=== PATIENT | male | born 1975 | race Two or more races ===

== ENCOUNTER 2020-04-26 13:55 | Emergency (ER) | payer SELFPAY ==
[2020-04-26 14:25] VITALS: BP 112/75; PULSE 71; RESP 14; TEMP 36.4; O2SAT 98; BMI 24.3
--- NOTE | 2020-04-26 14:28 | XR_ITS ---
PROCEDURE: XR KNEE RT 3V CLINICAL INDICATION: kicked by a horse COMPARISON: No exams were available for comparison FINDINGS: No fracture or dislocation. No lytic or blastic change. There is normal mineralization. The joint spaces are well-preserved. No significant degenerative/arthritic changes. There is mild soft tissue swelling medially just above the medial femoral condyle. There is no definite joint effusion. Other findings:None. IMPRESSION: Probable contusion medial knee, no other significant abnormality noted Dictated by: Dr. Ish Angulo MD 04/26/2020 14:51 Dr. Ish Angulo MD in [place] 04/26/2020 14:51
--- NOTE | 2020-04-26 14:54 | HMH.EDUTC ---
[facility] [place] Clinical Impression: Contusion of right knee Qualifiers: Encounter type: initial encounter Qualified Code(s): S80.01XA - Contusion of right knee, initial encounter Disposition: Home, Self-Care Condition on Discharge: Good Instructions: DI for Contusion, DI for Knee Pain Additional Instructions: Rest the extremity, apply ice for 15 minutes as tolerated three or four times per day, Wear the cuco wrap for compression, Elevate the extremity as tolerated while you are resting. Take ibuprofen for pain. I sent in a prescription to your pharmacy. Follow up with Dr. Otero (orthopedics) if you continue to have symptoms. I put in a referral but you need to call his office and schedule an appointment. Follow up with your regular doctor. GO TO THE ER FOR ANY WORSENING SYMPTOMS Prescriptions: Ibuprofen [Ibuprofen 600mg Tablet] 600 mg PO Q6HP PRN #30 tab PRN Reason: Mild Pain Transmission Status: Received by [facility] Referrals: Mariusz Pérez MD [Primary Care Provider] - Alvarez Otero MD [Staff Physician] - Time of Disposition: 15:17 Medical Decision Making - Medical Records Medical records reviewed: No: I reviewed the patient's medical records. - Ernesto Inquiry Pt receiving controlled substance: No Vital Signs: 04/26/20 14:25 04/26/20 15:39 Temperature 97.6 F 97.6 F Temperature Source Oral Pulse Rate 71 Pulse Rate [Right Brachial] 71 Respiratory Rate 14 14 Blood Pressure 112/75 Blood Pressure [Right Arm] 112/75 Blood Pressure Mean [Right Arm] 87 Blood Pressure Source [Right Arm] Automatic Cuff Blood Pressure Position [Right Arm] Sitting 02 Sat by Pulse Oximetry 98 Oxygen Delivery Method Room Air - Radiology Data #1 Image(s): Knee Image Reviewed: Yes I reviewed the patient's radiology image, Yes I have reviewed radiologist's interpretation Preliminary Findings: No Fracture Seen PROCEDURE: XR KNEE RT 3V CLINICAL INDICATION: kicked by a horse COMPARISON: No exams were available for comparison FINDINGS: No fracture or dislocation. No lytic or blastic change. There is normal mineralization. The joint spaces are well-preserved. No significant degenerative/arthritic changes. There is mild soft tissue swelling medially just above the medial femoral condyle. There is no definite joint effusion. Other findings:None. IMPRESSION: Probable contusion medial knee, no other significant abnormality noted Dictated by: Dr. Ish Angulo MD 04/26/2020 14:51 Dr. Ish Angulo MD in [place] 04/26/2020 14:51 [facility] [place] HPI - General Stated complaint: Ao 04/26/20 rt foot pain Time Seen by Provider: 04/26/20 14:54 Mode of Arrival: Ambulatory Source of Information: Patient, Parent(s) Limitations: No Limitations Description of Symptoms (Recalled from Triage Doc. by RN): PATIENT C/O RIGHT LEG PAIN AFTER GETTING KICKED IN RIGHT KNEE BY A HORSE HEENT Symptoms (Recalled from RN notes): No Resp Symptoms (Recalled from RN notes): No Skin Symptoms (Recalled from RN notes): No MS Symptoms (Recalled from RN notes): Yes Functional Status (Recalled from RN notes): WNL - History of Present Illness Provider Complaint: He states that he was kicked by a horse on his right knee earlier today. When he walks and bears weight on the knee it hurts. He has also been having neck and back pain. This pain has been ongoing for several months now. If he moves to quick he has pain. He denies any known injury. - Related Data Previous Rx's Medication Instructions Recorded Ibuprofen [Ibuprofen 600mg 600 mg PO Q6HP PRN #30 tab 04/26/20 Tablet] Allergies Allergy/AdvReac Type Severity Reaction Status Date / Time No Known Allergies Allergy Verified 04/26/20 14:36 - Worker's Comp Is this a Worker's Comp case?: No [facility] History - Hepatitis A Screen Drug use history?: No High risk sexual behaviors?: No History of sexually transmitted infection?:
[2020-04-26 15:39] VITALS: BP 112/75; PULSE 71; RESP 14; TEMP 36.4; O2SAT 98
== END 2020-04-26 15:41 | disposition home or self-care (01) ==
PROVIDERS: Emergency Provider Nurse Practitioner Family; PCP Emergency Medicine
DX: S80.01XA Contusion of right knee, initial encounter (principal); W55.12XA Struck by horse, initial encounter; Y92.73 Farm field as the place of occurrence of the external cause
CPT/HCPCS: 29505; 73562; 99202

== ENCOUNTER → 2022-06-27 13:28 | Outpatient (CLI) | payer OTHER, SELFPAY ==
--- NOTE | 2022-06-27 13:33 | MR_ITS ---
FINAL REPORT CLINICAL HISTORY: neck pain FINDINGS: Multi planar MR imaging was obtained of the cervical spine. There is abnormal decreased signal throughout the cervical discs. The vertebrae are of normal height. There is no malalignment. The cervical cord demonstrates normal signal and configuration. C2-C3: There is no evidence of significant disc bulge or protrusion. There is no significant facet hypertrophy. C3-C4: A mild diffuse disc bulge is present with mild bilateral neural foraminal narrowing. C4-C5: A mild diffuse disc bulge is present with mild bilateral neural foraminal narrowing. C5-C6: A moderate diffuse disc bulge is present. There are posterolateral disc protrusion with moderate to high-grade bilateral neural foraminal narrowing. C6-C7: A mild diffuse disc bulge is present with mild bilateral neural foraminal narrowing. C7-T1: There is no evidence of significant disc bulge or protrusion. There is no significant facet hypertrophy. IMPRESSION: Diffuse disc bulge at C5-6 with posterolateral disc protrusions and moderate to high-grade bilateral neural foraminal narrowing. Reviewed, Interpreted and Dictated by Darwin Spencer MD Transcribed by Sandhya Kothari Authenticated and [facility]
== END ==
PROVIDERS: PCP Emergency Medicine; Visit Provider Emergency Medicine
DX: M54.2 Cervicalgia (principal)
CPT/HCPCS: 72141; 76376

== ENCOUNTER → 2022-07-15 15:01 | Outpatient (POV) | payer OTHER, SELFPAY ==
[2022-07-15 15:39] VITALS: BP 114/74; PULSE 62; RESP 18; O2SAT 97; BMI 26.6
--- NOTE | 2022-07-15 16:17 | EXP.PAIN.OV ---
HPI Data of Consult Patient: new to practice Consult date: 07/15/22 Requesting Physician: Mandie Meadows APRN Primary Care Provider: Mariusz Pérez MD Consult Narrative Reason for consult: Neck pain, mid back pain, low back pain History of present illness: Mr. Roche is a 46 year old male who presents today as a new patient. He is a referral from Dr. Pérez's office. Today he rates his pain a 9 out of 10. Patient states he has pain from his neck down to his low back and describes it as a achy, throbbing, sharp sensation with decreased range of motion. Patient does state that he has frequent popping sensations throughout his spine and it is worse with increased activity. Patient denies any specific trauma or injury. Patient states that it just started 1 day and progressively worsened since. Patient has tried [id number] Tylenol and ibuprofen with no additional improvement. He also rotates heat and ice along with topicals such as IcyHot Biofreeze and CBD lotion however has not noticed significant change. Patient denies any physical therapy or chiropractor history. He is currently prescribed gabapentin 800 mg 3 times a day and Percocet 5 mg twice a day. Patient denies any side effects from this medication. He states it does help take the edge off of his pain symptoms. He does state that occasionally he will double up on his pain medication due to his symptoms. His Ernesto is [phone]. Its been reviewed and appropriate. CC: Mandie Meadows APRN [facility] Disclaimer: The information contained in this section may have been updated after the patient was seen, as this information can be updated by other users. Medical History Cervical radicular pain Sciatica, right side Social History (Updated 07/15/22 @ 15:40 by Anamaria Musa RN) Smoking Status: Never smoker alcohol intake: never substance use type: denies use current occupational status: other Travel in the last 8 weeks: None Review of Systems Review of Systems Review of systems:: pertinent systems reviewed and negative unless documented below Review of systems (narrative): Review of Systems: General: No recent weight changes, no fever, no sleep disturbances Respiratory: No cough, no shortness of air, no recurring pulmonary infections Cardiovascular/peripheral vascular: No chest pain, no palpitations, no edema, no shortness of breath Gastrointestinal: No new onset incontinence, normal bowel movements reported Genitourinary: No new onset incontinence Musculoskeletal: Neck pain, mid back pain, low back pain Psychiatric: [Normal mood/affect] Neurological: [Denies weakness in extremities], [denies balance issues] Meds Home Medications and Allergies Home Medications Medication Instructions Recorded Confirmed Type sildenafil 100 mg tablet (Viagra) 100 mg PO DAILY PRN sexual 02/07/22 07/15/22 Rx activity #20 tabs oxycodone-acetaminophen 5 mg-325 1 tab PO BID PRN pain #60 tabs 06/24/22 07/15/22 Rx mg tablet (Percocet) diclofenac sodium 1 % topical gel See Rx Instructions .Route 07/15/22 07/15/22 History .COMPLEX Pain gabapentin 800 mg tablet 800 mg PO TID Pain 07/15/22 07/15/22 History lidocaine 5 % topical patch See Rx Instructions .Route 07/15/22 07/15/22 History (Lidoderm) .COMPLEX Pain New Prescriptions to Start Prescriptions: Allergies Allergy/AdvReac Type Severity Reaction Status Date / Time diphenhydramine AdvReac Verified 06/24/22 15:58 [From Benadryl] hydrocodone AdvReac Verified 06/24/22 15:58 Objective Vital signs: Pulse Resp BP Pulse Ox 62 18 114/74 97 07/15/22 15:39 07/15/22 15:39 07/15/22 15:39 07/15/22 15:39 Narrative: Physical Exam: General: Alert and oriented x3, no acute distress, pleasant and cooperative Lungs: Respirations even and unlabored, symmetrical chest expansion Eyes: PERRL Musculoskeletal: Flexion and ext
== END ==
PROVIDERS: PCP Emergency Medicine; Visit Provider Nurse Practitioner Family
DX: M50.123 Cervical disc disorder at C6-C7 level with radiculopathy (principal); M48.02 Spinal stenosis, cervical region; M54.50 Low back pain, unspecified
CPT/HCPCS: 99202; G0463

== ENCOUNTER → 2022-08-20 18:30 | Outpatient (CLI) | payer OTHER, SELFPAY ==
[2022-08-20 20:01] LABS: Amphetamine/Metha Screen,Urine Negative ng/ml (<1000)
[2022-08-20 20:02] LABS: Barbiturates Screen,Urine Negative ng/ml (<200); Benzodiazepines Screen,Urine Negative ng/ml (<200)
[2022-08-20 20:03] LABS: Cannabinoid Screen,Urine Negative ng/ml (<50)
[2022-08-20 20:04] LABS: Cocaine Screen,Urine Negative ng/ml (<300)
[2022-08-20 20:05] LABS: Methadone Screen,Urine Negative ng/ml (<300)
[2022-08-20 20:06] LABS: Opiate Screen,Urine Negative ng/ml (<300); Phencyclidine Screen,Urine Negative ng/ml (<25)
== END ==
PROVIDERS: PCP Emergency Medicine; Visit Provider Emergency Medicine
DX: Z79.899 Other long term (current) drug therapy (principal)
CPT/HCPCS: 80305

== ENCOUNTER → 2022-10-22 13:30 | Outpatient (CLI) | payer OTHER, SELFPAY ==
[2022-10-22 19:15] LABS: Basophils % 0.6 % (0.1-2.0); Eosinophils # 0.1 K/mm3 (0.0-0.4); Eosinophils % 2.1 % (0.1-12.0); Hematocrit 43.6 % (42.0-52.0); Hemoglobin 13.9 g/dL (14.1-18.0); Lymphocytes # 1.7 K/mm3 (0.7-4.5); Lymphocytes % 27.1 % (10-50); Mean Corpuscular HGB Conc 31.9 g/dL (31.8-35.4); Mean Corpuscular Hemoglobin 30.7 pg (27.0-31.2); Mean Corpuscular Volume 96.2 fl (80-94); Mean Platelet Volume 9.5 fl (7.4-10.4); Monocytes # 0.3 K/mm3 (0.1-1.0); Monocytes % 5.1 % (1.7-9.3); Neutrophils # 4.1 K/mm3 (1.8-7.8); Platelet Count 330 K/mm3 (142-424); Red Blood Count 4.53 M/mm3 (4.60-6.20); Red Cell Distribution Width 13.5 % (11.5-17.5); White Blood Count 6.4 K/mm3 (4.8-10.8)
[2022-10-22 19:44] LABS: Alanine Aminotransferase 31 U/L (12-78); Albumin Level 4.4 g/dl (3.5-5.0); Albumin/Globulin Ratio 1.6 (1.1-1.8); Alkaline Phosphatase 123 U/L (38-126); Anion Gap 15.8 mEq/L (5-15); Aspartate Amino Transferase 42 U/L (17-59); Bilirubin,Total 1.3 mg/dl (0.2-1.3); Blood Urea Nitrogen 23 mg/dl (9-20); Calcium 8.9 mg/dl (8.4-10.2); Carbon Dioxide 30 mmol/L (22.0-30.0); Chloride 100 mmol/L (98-107); Chol/HDL Ratio 2.3 (1-3.5); Cholesterol 202 mg/dl (140-200); Estimated Glomerular Filt Rate 72 ml/min (>60); GFR (African American) 87 ML/MIN (>60); Globulin 2.8 g/dL (1.3-3.2); Glucose 62 mg/dl (74-100); HDL Cholesterol 86 mg/dl (40-60); Potassium 3.8 mmoL/L (3.5-5.1); Sodium 142 mmol/L (136-145); Total Protein,Serum 7.2 g/dl (6.3-8.2); Triglycerides 129 mg/dl (30-150); VLDL Cholesterol 26 mg/dL (0-40)
[2022-10-22 19:55] LABS: Direct LDL Cholesterol 88.23 mg/dL (100-129)
[2022-10-22 20:17] LABS: Prostate Specific Ag Screen 0.9 ng/ml (0.0-4.0); Thyroid Stimulating Hormone 0.64 uIU/mL (0.465-4.68)
[2022-10-22 20:46] LABS: Amphetamine/Metha Screen,Urine Negative ng/ml (<1000)
[2022-10-22 20:47] LABS: Barbiturates Screen,Urine Negative ng/ml (<200); Benzodiazepines Screen,Urine Negative ng/ml (<200)
[2022-10-22 20:48] LABS: Cannabinoid Screen,Urine Negative ng/ml (<50)
[2022-10-22 20:49] LABS: Cocaine Screen,Urine Negative ng/ml (<300); Methadone Screen,Urine Negative ng/ml (<300)
[2022-10-22 20:50] LABS: Opiate Screen,Urine Negative ng/ml (<300)
[2022-10-22 20:51] LABS: Phencyclidine Screen,Urine Negative ng/ml (<25)
[2022-10-24 12:27] LABS: T4 (Thyroxine) 6.6 ug/dl (5.53-11.0)
== END ==
PROVIDERS: PCP Emergency Medicine; Visit Provider Emergency Medicine
DX: Z00.00 Encounter for general adult medical examination without abnormal findings (principal); M50.30 Other cervical disc degeneration, unspecified cervical region; E55.9 Vitamin D deficiency, unspecified; Z79.899 Other long term (current) drug therapy; Z12.5 Encounter for screening for malignant neoplasm of prostate
CPT/HCPCS: 80053; 80061; 80305; 82306; 84436; 84443; 85025; G0103

== ENCOUNTER 2023-05-25 23:40 | Outpatient (CLI) | payer SELFPAY ==
[2023-05-25 22:01] LABS: Amphetamine/Metha Screen,Urine Negative ng/ml (<1000); Barbiturates Screen,Urine Negative ng/ml (<200); Benzodiazepines Screen,Urine Negative ng/ml (<200); Cannabinoid Screen,Urine Negative ng/ml (<50); Cocaine Screen,Urine Negative ng/ml (<300); Methadone Screen,Urine Negative ng/ml (<300); Opiate Screen,Urine Negative ng/ml (<300); Phencyclidine Screen,Urine Negative ng/ml (<25)
[2023-05-31 12:35] LABS: Opiates Negative (Cutoff=100)
== END 2023-05-25 23:59 ==
LOC: LAB.DROPOF 23:41
PROVIDERS: PCP Internal Medicine; Visit Provider Family Medicine
DX: M54.12 Radiculopathy, cervical region (principal); Z79.899 Other long term (current) drug therapy
CPT/HCPCS: 80307; 80361; 80365; G0480